=== PATIENT | female | born 1955 | race Caucasian/White ===

== ENCOUNTER 2019-01-05 12:24 | Day surgery (SDC) | payer BC ==
[2019-01-05] MEDS ORDERED: LR 1,000 ML IV ONE (12:49)
[2019-01-05] MEDS ORDERED: LIDOCAINE 1% 2 ML INJ ID PRN (12:49)
[2019-01-05] MEDS ORDERED: ceFAZolin 2 GM/DEXTROSE 100 ML IV ONE (13:47)
--- NOTE | 2019-01-05 13:49 | PDHPUP ---
History & Physical Update H&P update statement: This history and physical update is based on an assessment of the patient which was completed after admission or registration (within 24 hours), but prior to the surgery/procedure. no changes H&P update: H&P reviewed & patient examined (no changes), no change in patient' s condition since H&P completed H&P changes: None
[2019-01-05] MEDS ORDERED: BUPIVACAINE/EPI 0.5% 30 ML SDV ONE (13:51)
[2019-01-05] MEDS ORDERED: THROMBIN (BOVINE) 5,000 UNIT VIAL TP ONE (13:52)
[2019-01-05] MEDS ORDERED: BACITRACIN 50,000 UNITS/10 ML SYR IRR ONE (13:52)
[2019-01-05] MEDS ORDERED: CALCIUM CHLORIDE 1 GM/10 ML INJ ONE (13:52)
[2019-01-05] MEDS ORDERED: BUPIVACAINE 0.5% 30 ML SDV ONE (13:52)
[2019-01-05] MEDS ORDERED: LIDOCAINE 1% 300 MG/30 ML SDV ONE (13:52)
--- NOTE | 2019-01-05 14:12 | PDANEPAE ---
ANE Past Medical History - Cardiovascular History Hx Hypertension: No Hx Arrhythmias: Yes Hx Chest Pain: No Hx Coronary Artery / Peripheral Vascular Disease: No Hx CHF / Valvular Disease: No Hx Palpitations: No Cardiovascular History Comment: SVT/A-FIB QOD PAPLITATIONS. DX 08/2017 NO REGULAR CARDIOLOGY FU SINCE 08/2017 - Pulmonary History Hx COPD: No Hx Asthma/Reactive Airway Disease: No Hx Recent Upper Respiratory Infection: No Hx Oxygen in Use at Home: No Hx Sleep Apnea: No Sleep Apnea Screening Result - Last Documented: Negative Pulmonary History Comment: QUITE 01/02/19 - Neurologic History Hx Cerebrovascular Accident: No Hx Seizures: No Hx Dementia: No - Endocrine History Hx Diabetes: No - Renal History Hx Renal Disorders: No - Liver History Hx Hepatic Disorders: No - Neurological & Psychiatric Hx Hx Neurological and Psychiatric Disorders: Yes Neurological / Psychiatric History Comment: DEPRESSION - Cancer History Hx Cancer: No - Congenital Disorder History Hx Congenital Disorders: No - GI History Hx Gastrointestinal Disorders: No - Other Health History Other Health History: RT FOOT PLANTAR FASCITIS - Chronic Pain History Chronic Pain: Yes (RT FOOT) - Surgical History Prior Surgeries: PILONIDAL CYST ANE Review of Systems Review of Systems: - Exercise capacity METS (RN): 4 METS ANE Patient History - Allergies Allergies/Adverse Reactions: shellfish derived Allergy (Verified 01/04/19 16:25) Anaphylaxis - Home Medications Home Medications: Wellbutrin 150mg SR (*) DAILY 01/04/19 [Last Taken 01/05/19 07:00] - NPO status NPO Since - Liquids (Date): 01/05/19 NPO Since - Liquids (Time): 11:00 NPO Since - Solids (Date): 01/04/19 NPO Since - Solids (Time): 18:30 - Smoking Hx Smoking Status: Heavy smoker - Family Anes Hx Family Hx Anesthesia Complications: FAMILY MEMBER NAUSEA ANE Labs/Vital Signs - Vital Signs Blood Pressure: 129/79 Heart Rate: 62 Respiratory Rate: 16 O2 Sat (%): 95 Height: 172.72 cm Weight: 68.039 kg ANE Physical Exam - Airway Mallampati Score: Class 1 - ASA Status ASA Status: II ANE Anesthesia Plan Anesthesia Plan: MAC
[2019-01-05] MEDS ORDERED: MIDAZOLAM 2 MG/2 ML VIAL ONE (14:16)
[2019-01-05] MEDS ORDERED: fentaNYL 100 MCG/2 ML INJ ONE (14:17)
[2019-01-05] MEDS ORDERED: PROPOFOL/EMULSION 500 MG/50 ML BOTTLE IV ONE (14:18)
[2019-01-05] MEDS ORDERED: ROPIVACAINE HCL 150 MG/30 ML INJ ONE (14:34)
[2019-01-05] MEDS ORDERED: METOCLOPRAMIDE 10 MG/2 ML VIAL IVP PRN (15:36)
[2019-01-05] MEDS ORDERED: ONDANSETRON 4 MG/2 ML VIAL IVP PRN (15:36)
[2019-01-05] MEDS ORDERED: fentaNYL 100 MCG/2 ML INJ IVP PRN (15:36)
[2019-01-05] MEDS ORDERED: NALOXONE HCL 0.4 MG/ML INJ IVP PRN (15:36)
[2019-01-05] MEDS ORDERED: LR 500 ML IV PRN (15:36)
--- NOTE | 2019-01-05 15:37 | POSTANESTH ---
Post Anesthetic Evaluation Cardiovascular Status: Normal, Stable Respiratory Status: Normal, Stable Level of Consciousness/Mental Status: Can Participate in Eval Pain Control: Adequate, Prn Tx Ordered Nausea/Vomiting Control: Adequate, Prn Tx Ordered Complications Possibly Related to Anesthesia: None Noted
--- NOTE | 2019-01-05 15:38 | POSTOPPROG ---
Post Op Note Date of Operation: 01/05/19 Surgeon: Carlota Mcclendon Supervisor Sewing Room: none Anesthesiologist: yung bush MD Anesthesia: LMA Pre-op Diagnosis: Plantar fasciitis right Post-op Diagnosis: plantar fasciitis right Indication: recalcitrant pain Procedure: Plantar fascia release right Findings: thickened fascia Inf/Abcess present in the surg proc area at time of surgery?: No Depth: Deep Incisional (Fascial) EBL: Minimal Complications: None. Specimen(s): specimen sent to pathology
[2019-01-05] MEDS ORDERED: RIVAROXABAN 10 MG TAB PO SCH (15:45)
[2019-01-05 17:12] VITALS: BP 129/77
--- NOTE | 2019-01-05 17:12 | GOP ---
[f rep st] OPERATIVE REPORT DATE OF OPERATION: 01/05/2019 SURGEON: Carlota Mcclendon DPM ANESTHESIA: MAC/light general. ANESTHESIOLOGIST: Freddie Lopez MD PREOPERATIVE DIAGNOSIS: Plantar fasciitis, recalcitrant heel pain, right foot. POSTOPERATIVE DIAGNOSIS: Plantar fasciitis, recalcitrant heel pain, right foot. PROCEDURE PERFORMED: Plantar fascial release, right foot and injection of platelet rich plasma, righ t foot. FINDINGS: INDICATIONS: Recalcitrant heel pain greater than 9 months duration, unresponsive to multiple conserv ative treatment efforts, including stretching, physical therapy, anti-inflammatories, ice, inserts, m odification shoe gear. MRI study was completed confirming inflammation of the plantar fascia, small osteophytes plantar. Due to the recalcitrant nature of her heel pain, plantar fascia release indicat ed. Platelet rich plasma injection in addition to the plantar heel. DESCRIPTION OF PROCEDURE: Patient was brought into the operating room, placed on the operating table in a supine position. Intravenous sedation/light general administered by the anesthesiologist. A p osterior tibial and peripheral nerve block was obtained utilizing a total of 5 cc of 1% lidocaine deb in, 5 cc of 0.5% Marcaine plain, and 8 cc of ropivacaine 0.5%. The lower extremity was prepped and d raped in usual sterile manner. After the limb was elevated, it was exsanguinated with an Esmarch ban dage and the ankle tourniquet was inflated to 220 mmHg, and the procedure was begun. Webril padding utilized under the ankle cuff. Attention directed toward the plantar foot, approximately 1 cm anterior to the heel pad where a linea r incision was created measuring approximately 2 cm in length. Incision was carefully deepened throu gh the fatty tissue with care of vascular structures, bleeders cauterized. Very tight fibrous medial band was identified and this was released with a tenotomy scissors, and as the incision was carefull y deepened, the thick fibrous plantar fascia ligament was identified, the central band. The windlass mechanism was involved and utilizing a Neeses elevator underneath, that central band, the plantar fas jose alberto was released utilizing a 15 blade. At this time, no tight adhesions were noted. Section of the plantar fascia sent to Pathology for gross and microscopic examination. The wound was copiously irri gated with bacitracin irrigation solution. Tourniquet was released and a normal hyperemic response w as noted to all digits. There were no abnormal bleeders. The subcutaneous tissue closed with 4-0 Monocryl and skin was closed with 3-0 and 4-0 Prolene in a ho rizontal mattress, vertical mattress, and simple interrupted suture fashion. Prior to full closure, approximately 4 cc of platelet rich plasma was injected into the wound. Final closure with 4-0 Prole ne. In direct plantar aspect of the calcaneus on its medial, central, and plantar aspects, remaining 3.5 cc of platelet rich plasma was injected utilizing a 22-gauge needle. Dressings, include Xeroform, 4x 4s, fluffs reinforced with tape, Hilary, and an Wang bandage. Patient tolerated the procedure and anes thesia well and left the operating room with vital signs stable and vascular status intact to all dig its. In postoperative recovery, she was doing well. She was fitted with a Cryo/Cuff. She was given a dos age of Xarelto 10 mg and to start taking Xarelto at home tomorrow, 24 hours later, for DVT prophylaxi s. She is to minimize weightbearing the next few days, but then can bear full weight on it with a ca st boot on. She has a night splint that she will be using in the evenings. Prognosis is good. She is to follow up in the office in 5 days for wound check. /[id number]/MODL
== END 2019-01-05 18:00 | disposition home or self-care (01) ==
LOC: FSGY 12:24
PROVIDERS: ATTEND Podiatrist
DX: M72.2 Plantar fascial fibromatosis (principal); F17.210 Nicotine dependence, cigarettes, uncomplicated
CPT/HCPCS: 0232T; 28060; J0690; J2250; J2704; J2795; J3010